=== PATIENT | male | born 1995 | race Caucasian/White ===

== ENCOUNTER 2020-02-26 14:41 | Emergency (ER) | payer OTHER ==
[2020-02-26] MEDS ORDERED: FOSPHENYTOIN PE 1,000 MG in NA CHLORIDE 0.9% 100 ML IV ONE (15:00)
[2020-02-26 15:05] LABS: Absolute Lymphocytes (CBC) 1.6 K/uL (0.7-4.9); Basophils % 0.6 % (0-1.3); Hematocrit 50.1 % (39.6-49.0); MPV 9.6 fL (7.6-11.3); RBC Red Blood Cell Count 5.61 M/uL (4.33-5.43)
[2020-02-26 15:21] LABS: BUN Blood Urea Nitrogen 16 mg/dL (7-18); Bicarbonate 26 mmol/L (21-32); Glucose Level 88 mg/dL (74-106); Sodium Level 142 mmol/L (136-145)
--- NOTE | 2020-02-26 15:38 | RAD REPORT ---
EXAM DESCRIPTION: CT - [id number] - 02/26/2020 3:13 pm CLINICAL HISTORY: seizure, headache COMPARISON: No comparisons TECHNIQUE: Axial 5 mm thick images of the head were obtained. Axial 2 mm thick images of the cervic al spine were obtained with sagittal and coronal reconstruction images generated and reviewed. All CT scans are performed using dose optimization technique as appropriate and may include automated exposure control or mA/KV adjustment according to patient size. FINDINGS: No intracranial hemorrhage, mass, edema or acute intracranial finding. No suspicion for ac nida infarction. No extra-axial fluid collections. Mastoid air cells and paranasal sinuses are clear. No globe or orbit abnormality seen. Cervical body height and alignment are normal. No disk space narrowing. No fracture or acute bony abn ormality. Central canal detail is inherently limited. No paraspinal mass or hematoma. IMPRESSION: Negative CT head examination for acute or significant finding. Negative CT cervical spine examination for acute or significant finding.
[2020-02-26 15:53] LABS: Barbiturates NEGATIVE (NEGATIVE); Benzodiazepines NEGATIVE (NEGATIVE); Cocaine NEGATIVE (NEGATIVE); METHAMPHETAM NEGATIVE (NEGATIVE); Methadone NEGATIVE (NEGATIVE); Opiates NEGATIVE (NEGATIVE); Phencyclidine NEGATIVE (NEGATIVE); THC Cannibis NEGATIVE (NEGATIVE)
--- NOTE | 2020-02-26 16:24 | ER ---
Nurse's Notes [facility] Name: Kalen Orantes Age: 24 yrs Sex: Male : 1995 Arrival Date: 02/26/2020 Time: 14:43 Bed 7 Private MD: Diagnosis: Epilepsy and recurrent seizures Presentation: 02/25 14:59 Chief complaint: EMS states: Pt had about six witnessed seizures; has a history of jl7 seizures since childhood. Report GOOD and leg pain. Coronavirus screen: Patient denies a cough. Patient denies shortness of breath or difficulty breathing. Patient denies measured and/or subjective temperature greater than 100.4F prior to today's visit. Patient denies travel on a cruise ship or to a country the [facility] currently lists as an affected area. Patient denies contact with known and/or suspected case of COVID-19. Proceed with normal triage. Ebola Screen: No symptoms or risks identified at this time. Initial Sepsis Screen: Does the patient meet any 2 criteria? No. Patient's initial sepsis screen is negative. Does the patient have a suspected source of infection? No. Patient's initial sepsis screen is negative. Risk Assessment: Do you want to hurt yourself or someone else? Patient reports no desire to harm self or others. Onset of symptoms was February 26, 2020. Care prior to arrival: None. 14:59 Method Of Arrival: EMS: [facility] jl7 14:59 Acuity: GODFREY 2 jl7 Historical: - Allergies: 15:02 No Known Allergies; jl7 - Home Meds: 15:02 Depakote Oral [Active]; jl7 - PMHx: 15:02 Seizures; jl7 - Immunization history:: Adult Immunizations up to date. - Social history:: Smoking status: unknown. Screenin:45 Abuse screen: Denies threats or abuse. Denies injuries from another. Nutritional jl7 screening: No deficits noted. Tuberculosis screening: No symptoms or risk factors identified. Fall Risk IV access (20 points). Total Nunez Fall Scale indicates No Risk (0-24 pts). Assessment: 14:45 General: Appears in no apparent distress. uncomfortable, Behavior is calm, cooperative, jl7 appropriate for age. Pain: Complains of pain in GOOD, right leg and left leg Pain does not radiate. Pain currently is 6 out of 10 on a pain scale. Is continuous. Neuro: Level of Consciousness is awake, alert, obeys commands, Oriented to person, place, time, situation. Cardiovascular: Patient's skin is warm and dry. Respiratory: Airway is patent Respiratory effort is even, unlabored, Respiratory pattern is regular, symmetrical. GI: No signs and/or symptoms were reported involving the gastrointestinal system. : No signs and/or symptoms were reported regarding the genitourinary system. Derm: Skin is pink, warm \T\ dry. Musculoskeletal: Range of motion: intact in all extremities, Swelling absent. 15:45 Reassessment: Patient appears in no apparent distress at this time. No changes from jl7 previously documented assessment. Patient and/or family updated on plan of care and expected duration. Pain level reassessed. Patient is alert, oriented x 3, equal unlabored respirations, skin warm/dry/pink. Vital Signs: 14:59 BP 124 / 77; Pulse 104; Resp 22; Temp 99; Pulse Ox 96% ; jl7 15:20 BP 122 / 69; Pulse 90; Resp 16; Pulse Ox 96% on R/A; ks7 15:52 BP 104 / 71; Pulse 82; Resp 16; Pulse Ox 96% ; jl7 16:34 BP 93 / 45; Pulse 72; Resp 17; Pulse Ox 98% on R/A; ks7 16:41 BP 122 / 69; Pulse 89; Resp 16; Pulse Ox 96% ; jl7 ED Course: 14:43 Patient arrived in ED. bd 14:43 Terence Morin MD is Attending Physician. kdr 14:45 Patient has correct armband on for positive identification. Placed in gown. Bed in low jl7 position. Call light in reach. Side rails up X2. Security at bedside. Seizure precautions initiated. cardiac monitor on. Pulse ox on. NIBP on. Warm blanket given. 14:46 Vianey Marvin RN is Primary Nurse. jl7 15:00 Triage completed. jl7 15:02 Arm band placed on right wrist. jl7 15:14 CT Head C Spine In Process Unspecified. EDMS 15:15 Initial lab(s) drawn, by me, sent to lab. Urine collected: clean catch specimen, clear. jl7 Inserted saline lock: 20 gauge in right antecubital area, using aseptic technique. Blood collected. 16:48 No provider procedures requiring assistance completed. IV discontinued, intact, jl7 bleeding controlled, No redness/swelling at site. Pressure dressing applied. Administered Medications: 15:20 Drug: CEREbyx 1 grams Route: IVPB; Site: right antecubital; ks7 16:20 Follow up: Response: No adverse reaction; IV Status: Completed infusion jl7 Outcome: 16:23 Discharge ordered by . melania 16:48 Discharged to Law Enforcement jl7 16:48 Condition: stable 16:48 Discharge instructions given to patient, police, Instructed on discharge instructions, follow up and referral plans. medication usage, Demonstrated understanding of instructions, follow-up care, medications, Prescriptions given X 1. 16:48 Patient left the ED. jl7 Signatures: Dispatcher [employer] EDMS Deena Lozano Kevin, MD MD kdr Leal, Jahala RN RN jl7 Gi Levine RN RN ks7
--- NOTE | 2020-02-26 16:24 | EDPHYS ---
Physician Documentation [facility] Name: Kalen Orantes Age: 24 yrs Sex: Male : 1995 Arrival Date: 02/26/2020 Time: 14:43 Bed 7 Private MD: ED Physician Terence Morin HPI: 02/25 14:45 This 24 yrs old Male presents to ER via Unassigned with complaints of kdr recurrent seizures. 14:45 The patient presents with a history of multiple seizures, an unknown number, that last kdr an unknown period of time, the episode(s) was witnessed, by a bystander. Character of seizure(s): Loss of consciousness: the patient experienced loss of consciousness, Motor activity: Incontinence: none. Seizure onset: this morning, today. Context: occurred Retirement, occurred while the patient was at rest. Seizure Hx: Original onset: longstanding, since childhood,\E\ Cause: unknown, Last seizure: The patient's last seizure yesterday. Associated injury: The patient did not suffer any apparent associated injury. EMS care: none. Current symptoms: headache, Generalized myalgias . The patient has experienced similar episodes in the past, multiple times. The patient has not recently seen a physician. Historical: - Allergies: 15:02 No Known Allergies; jl7 - Home Meds: 15:02 Depakote Oral [Active]; jl7 - PMHx: 15:02 Seizures; jl7 - Immunization history:: Adult Immunizations up to date. - Social history:: Smoking status: unknown. ROS: 14:45 Constitutional: Negative for fever, chills, and weight loss, Eyes: Negative for injury, kdr pain, redness, and discharge, ENT: Negative for injury, pain, and discharge, Neck: Negative for injury, pain, and swelling, Cardiovascular: Negative for chest pain, palpitations, and edema, Respiratory: Negative for shortness of breath, cough, wheezing, and pleuritic chest pain, Abdomen/GI: Negative for abdominal pain, nausea, vomiting, diarrhea, and constipation, Back: Negative for injury and pain, : Negative for injury, bleeding, discharge, and swelling, MS/Extremity: Negative for injury and deformity, Skin: Negative for injury, rash, and discoloration, Psych: Negative for depression, anxiety, suicide ideation, homicidal ideation, and hallucinations, Allergy/Immunology: Negative for hives, rash, and allergies, Endocrine: Negative for neck swelling, polydipsia, polyuria, polyphagia, and marked weight changes, Hematologic/Lymphatic: Negative for swollen nodes, abnormal bleeding, and unusual bruising. 14:45 Neuro: Positive for headache, seizure activity, Negative for altered mental status, dizziness, hearing loss, numbness, speech changes, syncope, near syncope, tingling, tinnitus, tremor, visual changes, weakness. Exam: 14:45 Constitutional: This is a well developed, well nourished patient who is awake, alert, kdr and in no acute distress. Head/Face: Normocephalic, atraumatic. Eyes: Pupils equal round and reactive to light, extra-ocular motions intact. Lids and lashes normal. Conjunctiva and sclera are non-icteric and not injected. Cornea within normal limits. Periorbital areas with no swelling, redness, or edema. Neck: Trachea midline, no thyromegaly or masses palpated, and no cervical lymphadenopathy. Supple, full range of motion without nuchal rigidity, or vertebral point tenderness. No Meningismus. Chest/axilla: Normal chest wall appearance and motion. Nontender with no deformity. No lesions are appreciated. Cardiovascular: Regular rate and rhythm with a normal S1 and S2. No gallops, murmurs, or rubs. Normal PMI, no JVD. No pulse deficits. Respiratory: Lungs have equal breath sounds bilaterally, clear to auscultation and percussion. No rales, rhonchi or wheezes noted. No increased work of breathing, no retractions or nasal flaring. Abdomen/GI: Soft, non-tender, with normal bowel sounds. No distension or tympany. No guarding or rebound. No evidence of tenderness throughout. Back: No spinal tenderness. No costovertebral tenderness. Full range of motion. Skin: Warm, dry with normal turgor. Normal color with no rashes, no lesions, and no evidence of cellulitis. MS/ Extremity: Pulses equal, no cyanosis. Neurovascular intact. Full, normal range of motion. Neuro: Awake and alert, GCS 15, oriented to person, place, time, and situation. Cranial nerves II-XII grossly intact. Motor strength 5/5 in all extremities. Sensory grossly intact. Cerebellar exam normal. Normal gait. Psych: Awake, alert, with orientation to person, place and time. Behavior, mood, and affect are within normal limits. Vital Signs: 14:59 BP 124 / 77; Pulse 104; Resp 22; Temp 99; Pulse Ox 96% ; jl7 15:20 BP 122 / 69; Pulse 90; Resp 16; Pulse Ox 96% on R/A; ks7 15:52 BP 104 / 71; Pulse 82; Resp 16; Pulse Ox 96% ; jl7 16:34 BP 93 / 45; Pulse 72; Resp 17; Pulse Ox 98% on R/A; ks7 16:41 BP 122 / 69; Pulse 89; Resp 16; Pulse Ox 96% ; jl7 MDM: 14:45 Data reviewed: vital signs, nurses notes, lab test result(s), radiologic studies. kdr Counseling: I had a detailed discussion with the patient and/or guardian regarding: the historical points, exam findings, and any diagnostic results supporting the discharge/admit diagnosis, lab results, radiology results, the need for outpatient follow up. 16:23 Patient medically screened. kdr 16:25 Special discussion: Based on the patient's history, exam and DX evaluation, there is no [facility] indication for emergent intervention or inpatient [place]. It is understood by the patient/guardian that if the SXs persist or worsen they need to return immediately for re-evaluation. I discussed with the patient/guardian in detail that at this point there is no indication for admission to the hospital. It is understood, however, that if the symptoms persist or worsen the patient needs to return immediately for re-evaluation. Based on the history and exam findings, there is no indication for further emergent testing or inpatient evaluation. I discussed with the patient/guardian the need to see the neurologist for further evaluation of the symptoms. 02/25 14:44 Order name: UDS; Complete Time: 16:22 [facility] 02/25 14:44 Order name: CBC with Diff; Complete Time: 15:33 [facility] 02/25 14:44 Order name: CT Head C Spine; Complete Time: 16:22 [facility] 02/25 14:44 Order name: Chem 7; Complete Time: 15:33 [facility] 02/25 16:19 Order name: Urine Dipstick--Ancillary (enter results) bd Administered Medications: 15:20 Drug: CEREbyx 1 grams Route: IVPB; Site: right antecubital; ks7 16:20 Follow up: Response: No adverse reaction; IV Status: Completed infusion jl7 Disposition: 02/26/20 16:23 Discharged to Home. Impression: Epilepsy and recurrent seizures. - Condition is Stable. - Discharge Instructions: Seizure, Adult, [id number]. - Prescriptions for Keppra 500 mg Oral Tablet - take 1 tablet by ORAL route every 12 hours; 20 tablet. - Medication Reconciliation Form, Thank You Letter form. - Follow up: Private Physician; When: 2 - 3 days; Reason: If symptoms return, Further diagnostic work-up, Recheck today's complaints, Continuance of care, Re-evaluation by your physician. - Problem is an acute exacerbation. - Symptoms are resolved. Signatures: Dispatcher [employer] EDMS Terence Morin MD MD kdr Leal, Jahala RN RN jl7 Gi Levine RN RN ks7 Corrections: (The following items were deleted from the chart) 16:48 16:23 02/26/2020 16:23 Discharged to Home. Impression: Epilepsy and recurrent seizures. jl7 Condition is Stable. Forms are Medication Reconciliation Form, Thank You Letter, Antibiotic Education, Prescription Opioid Use. Follow up: Private Physician; When: 2 - 3 days; Reason: If symptoms return, Further diagnostic work-up, Recheck today's complaints, Continuance of care, Re-evaluation by your physician. Problem is an acute exacerbation. Symptoms are resolved. kdr
[2020-02-26 16:56] VITALS: TEMP 99
[2020-02-26 17:01] VITALS: BP 122/69; O2SAT 96
[2020-02-26 20:54] LABS: Urine Blood NEGATIVE (NEG); Urine Glucose NEGATIVE (NEG); Urine Protein 1+ (NEG); Urine Specific Gravity 1.025 (1.005-1.030)
== END 2020-02-26 16:48 | disposition home or self-care (01) ==
LOC: ER 14:41
DX: G40.802 Other epilepsy, not intractable, without status epilepticus (principal)
CPT/HCPCS: 96365; 85025; 80048; 36415; 80307 ×8; 81003; 70450; 72125; 99285; Q2009

== ENCOUNTER 2020-02-26 20:47 | Emergency (ER) | payer OTHER ==
[2020-02-26] MEDS ORDERED: LEVETIRACETAM 500 MG/5 ML VIAL IV ONE (21:43)
[2020-02-26] MEDS ORDERED: NA CHLORIDE 0.9% 100 ML IV ONE (21:45)
[2020-02-26 22:16] LABS: BUN Blood Urea Nitrogen 17 mg/dL (7-18); Bicarbonate 25 mmol/L (21-32); Glucose Level 86 mg/dL (74-106); Potassium 3.9 mmol/L (3.5-5.1); Sodium Level 142 mmol/L (136-145)
[2020-02-26] MEDS ORDERED: KETOROLAC 30 MG/ML INJ ONE (22:39)
[2020-02-26] MEDS ORDERED: LORazepam 2 MG/ML VIAL ONE (22:39)
--- NOTE | 2020-02-26 23:34 | EDPHYS ---
Physician Documentation [facility] Name: Kalen Orantes Age: 24 yrs Sex: Male : 1995 Arrival Date: 02/26/2020 Time: 20:55 Bed 17 Private MD: ED Physician Altaf Jaimes HPI: 02/25 22:46 This 24 yrs old Male presents to ER via EMS with complaints of Probable rn Seizure. 22:46 The patient presents after having a possible seizure episode, the episode(s) was rn witnessed, [facility] staff. Character of seizure(s): Loss of consciousness: it is not known if the patient experienced loss of consciousness, Motor activity: generalized, Incontinence: none, Circulation: the patient did not experience evidence of pulse disturbance, Eye movements: are unknown. Seizure onset: today. Associated injury: The patient did not suffer any apparent associated injury. Current symptoms: Currently, the patient is not experiencing any symptoms. The patient has experienced similar episodes in the past. Reports seen earlier today for seizure, given fosphenytoin, went back to [facility] and had another witnessed seizure. Feels fine now. Has been having frequent seizures since age 8, after age 20 stopped seeing neuro or taking his medication. Keppra written for earlier not filled yet. Reports frequent seizures. States has seizures when gets hot and doesn't take his medicine. . Historical: - Allergies: 21:05 FISH PRODUCT DERIVATIVES; mt2 - PMHx: 21:05 Seizures; mt2 - Immunization history:: Adult Immunizations up to date. - Social history:: Smoking status: Patient reports the use of cigarette tobacco products, denies chronic smoking, but will smoke occasionally, Patient/guardian denies using alcohol. - Family history:: not pertinent. - Hospitalizations: : No recent hospitalization is reported. ROS: 22:46 Constitutional: Negative for fever, chills, and weight loss, Eyes: Negative for injury, rn pain, redness, and discharge, Cardiovascular: Negative for chest pain, palpitations, and edema, Respiratory: Negative for shortness of breath, cough, wheezing, and pleuritic chest pain, Abdomen/GI: Negative for abdominal pain, nausea, vomiting, diarrhea, and constipation, MS/Extremity: Negative for injury and deformity, Skin: Negative for injury, rash, and discoloration, Neuro: Negative for headache, weakness, numbness, tingling Exam: 22:36 ECG was reviewed by the Attending Physician. rn 22:46 Constitutional: This is a well developed, well nourished patient who is awake, alert, rn and in no acute distress. Head/Face: Normocephalic, atraumatic. Cardiovascular: Regular rate and rhythm. No pulse deficits. Respiratory: No increased work of breathing, no retractions or nasal flaring. Abdomen/GI: soft, non-tender Skin: Warm, dry MS/ Extremity: Pulses equal, no cyanosis. Neurovascular intact. Full, normal range of motion. Equal circumference. Neuro: Awake and alert, GCS 15, oriented to person, place, time, and situation. Cranial nerves II-XII grossly intact. Motor strength 5/5 in all extremities. Sensory grossly intact. Cerebellar exam normal. Vital Signs: 20:59 BP 128 / 61; Pulse 91; Resp 16; Temp 98.2; Pulse Ox 97% on R/A; Weight 125.65 kg; Pain mt2 0/10; 22:35 BP 124 / 50; Pulse 88; Resp 17 S; Pulse Ox 100% on R/A; jd3 23:30 BP 133 / 73; Pulse 87; Resp 17 S; Pulse Ox 100% on R/A; jd3 Barbara Coma Score: 20:59 Eye Response: spontaneous(4). Verbal Response: oriented(5). Motor Response: obeys mt2 commands(6). Total: 15. MDM: 21:14 Patient medically screened. rn 23:32 Differential diagnosis: seizure. Data reviewed: vital signs, nurses notes, old medical rn records, lab test result(s), EKG, and as a result, I will discharge patient. Counseling: I had a detailed discussion with the patient and/or guardian regarding: the historical points, exam findings, and any diagnostic results supporting the discharge/admit diagnosis, lab results, radiology results, the need for outpatient follow up, to return to the emergency department if symptoms worsen or persist or if there are any questions or concerns that arise at home. Response to treatment: the patient's condition has returned to base line, the patient is now symptom free, sleeping, ate a meal, no further seizure activity here, observed for 3 hours., and as a result, I will discharge patient. Special discussion: I discussed with the patient/guardian in detail that at this point there is no indication for admission to the hospital. It is understood, however, that if the symptoms persist or worsen the patient needs to return immediately for re-evaluation. 02/25 21:23 Order name: BMP; Complete Time: 22:46 rn 02/25 21:49 Order name: Glucose, Ancillary Testing; Complete Time: 22:46 EDNJ 02/25 21:23 Order name: IV Start; Complete Time: 21:51 rn 02/25 21:23 Order name: Glucose Level; Complete Time: 21:51 rn EC:36 Rate is 81 beats/min. Rhythm is regular. QRS [place] is Normal. OR interval is normal. QRS rn interval is normal. QT interval is normal. No Q waves. T waves are Normal. No ST changes noted. Clinical impression: Normal ECG. Interpreted by me. Reviewed by me. Administered Medications: 21:51 Drug: Keppra 1000 mg Route: IV; Rate: calculated rate; Site: right antecubital; jd3 22:50 Follow up: Response: No adverse reaction; IV Status: Completed infusion; IV Intake: jd3 100ml 22:33 Drug: Ativan 1 mg Route: IVP; Site: right antecubital; jd3 23:30 Follow up: Response: No adverse reaction jd3 22:34 Drug: TORadol - Ketorolac 15 mg Route: IVP; Site: right antecubital; jd3 23:30 Follow up: Response: No adverse reaction jd3 Disposition: 02/26/20 23:33 Discharged to Home. Impression: Epilepsy and recurrent seizures. - Condition is Stable. - Discharge Instructions: Seizure, Adult. - Medication Reconciliation Form, Thank You Letter, Antibiotic Education, Prescription Opioid Use form. - Follow up: Private Physician; When: As needed; Reason: Recheck today's complaints, Re-evaluation by your physician. - Problem is an ongoing problem. - Symptoms have improved. Signatures: Dispatcher [employer] Altaf Galvin MD MD rn Davies, Jonathon, RN RN jd3 Toscano, Marlene, RN RN mt2 Corrections: (The following items were deleted from the chart) 23:56 23:33 02/26/2020 23:33 Discharged to Home. Impression: Epilepsy and recurrent seizures. jd3 Condition is Stable. Forms are Medication Reconciliation Form, Thank You Letter, Antibiotic Education, Prescription Opioid Use. Follow up: Private Physician; When: As needed; Reason: Recheck today's complaints, Re-evaluation by your physician. Problem is an ongoing problem. Symptoms have improved. rn
--- NOTE | 2020-02-26 23:34 | ER ---
Nurse's Notes [facility] Name: Kalen Orantes Age: 24 yrs Sex: Male : 1995 Arrival Date: 02/26/2020 Time: 20:55 Bed 17 Private MD: Diagnosis: Epilepsy and recurrent seizures Presentation: 02/25 20:59 Chief complaint: EMS states: BIBA FROM [facility] FOR WITNESSED SZ. PT WAS mt2 SEEN EARLIER FOR SIMILAR EPISODE WAS DCS WITH SCRIPT. FACILITY UNABLE TO FILL TODAY. AT DINNER PT STARTED EATING WHEN LOC WAS OBSERVED WELL A 15 MINUTE LONG SZ. AIRWAY PATIENT ON SCENE PER EMS ON ARRIVAL PT WAS AWAKE AND ALERT VS WNL. NSR. GUARDS AT BEDSIDE. Coronavirus screen: Patient denies a cough. Patient denies shortness of breath or difficulty breathing. Patient denies measured and/or subjective temperature greater than 100.4F prior to today's visit. Patient denies travel on a cruise ship or to a country the [facility] currently lists as an affected area. Patient denies contact with known and/or suspected case of COVID-19. Patient instructed to continue to wear a mask when interacting with others. Patient moved to private room, placed in contact and droplet isolation with eye protection until further assessment. Ebola Screen: No symptoms or risks identified at this time. Initial Sepsis Screen: Does the patient meet any 2 criteria? No. Patient's initial sepsis screen is negative. Does the patient have a suspected source of infection? No. Patient's initial sepsis screen is negative. Risk Assessment: Do you want to hurt yourself or someone else?. Onset of symptoms was February 26, 2020. 20:59 Method Of Arrival: EMS: [facility] mt2 20:59 Acuity: GODFREY 3 mt2 Triage Assessment: 20:59 General: Appears in no apparent distress. comfortable, Behavior is cooperative. Pain: mt2 Denies pain. EENT: No deficits noted. Neuro: Reports headache in entire. Cardiovascular: No deficits noted. Respiratory: No deficits noted. GI: No deficits noted. : No deficits noted. Derm: No deficits noted. Musculoskeletal: No deficits noted. Historical: - Allergies: 21:05 FISH PRODUCT DERIVATIVES; mt2 - PMHx: 21:05 Seizures; mt2 - Immunization history:: Adult Immunizations up to date. - Social history:: Smoking status: Patient reports the use of cigarette tobacco products, denies chronic smoking, but will smoke occasionally, Patient/guardian denies using alcohol. - Family history:: not pertinent. - Hospitalizations: : No recent hospitalization is reported. Screenin:53 Abuse screen: Denies threats or abuse. Nutritional screening: No deficits noted. jd3 Tuberculosis screening: No symptoms or risk factors identified. Fall Risk Ambulatory Aid- None/Bed Rest/Nurse Assist (0 pts). Gait- Normal/Bed Rest/Wheelchair (0 pts) Mental Status- Oriented to own ability (0 pts). Total Nunez Fall Scale indicates No Risk (0-24 pts). Assessment: 21:51 General: Appears in no apparent distress. uncomfortable, Behavior is calm, cooperative, jd3 appropriate for age. Pain: Complains of pain in head Quality of pain is described as aching. Neuro: Level of Consciousness is awake, alert, obeys commands, Oriented to person, place, time, situation. Cardiovascular: Denies chest pain, Capillary refill < 3 seconds Patient's skin is warm and dry. Respiratory: Airway is patent Respiratory effort is even, unlabored, Respiratory pattern is regular, symmetrical. GI: No signs and/or symptoms were reported involving the gastrointestinal system. : No signs and/or symptoms were reported regarding the genitourinary system. EENT: No signs and/or symptoms were reported regarding the EENT system. Derm: Skin is intact, Skin is dry, Skin is normal, Skin temperature is warm. Musculoskeletal: Circulation, motion, and sensation intact. Range of motion: intact in all extremities. 22:34 Reassessment: Patient appears in no apparent distress at this time. Patient and/or jd3 family updated on plan of care and expected duration. Pain level reassessed. Patient is alert, oriented x 3, equal unlabored respirations, skin warm/dry/pink. pt reporting feeling better, but continues to have a headache, provider notified. 23:30 Reassessment: Patient appears in no apparent distress at this time. Patient and/or jd3 family updated on plan of care and expected duration. Pain level reassessed. Patient is alert, oriented x 3, equal unlabored respirations, skin warm/dry/pink. Patient states feeling better. Vital Signs: 20:59 BP 128 / 61; Pulse 91; Resp 16; Temp 98.2; Pulse Ox 97% on R/A; Weight 125.65 kg; Pain mt2 0/10; 22:35 BP 124 / 50; Pulse 88; Resp 17 S; Pulse Ox 100% on R/A; jd3 23:30 BP 133 / 73; Pulse 87; Resp 17 S; Pulse Ox 100% on R/A; jd3 Barbara Coma Score: 20:59 Eye Response: spontaneous(4). Verbal Response: oriented(5). Motor Response: obeys mt2 commands(6). Total: 15. ED Course: 20:55 Patient arrived in ED. sg 20:59 Arm band placed on right wrist. mt2 21:04 Triage completed. mt2 21:05 EKG completed in triage. Results shown to MD. mt2 21:14 Melvin Pena RN is Primary Nurse. jd3 21:14 Altaf Jaimes MD is Attending Physician. rn 21:51 Inserted saline lock: 20 gauge in right antecubital area, using aseptic technique. dh4 Blood collected. 21:53 Patient has correct armband on for positive identification. Bed in low position. Call jd3 light in reach. Side rails up X2. Adult w/ patient. Seizure precautions initiated. Pulse ox on. NIBP on. 22:34 Diet tray given. jd3 23:30 No provider procedures requiring assistance completed. jd3 23:47 IV discontinued, intact, bleeding controlled, No redness/swelling at site. Pressure jd3 dressing applied. Administered Medications: 21:51 Drug: Keppra 1000 mg Route: IV; Rate: calculated rate; Site: right antecubital; jd3 22:50 Follow up: Response: No adverse reaction; IV Status: Completed infusion; IV Intake: jd3 100ml 22:33 Drug: Ativan 1 mg Route: IVP; Site: right antecubital; jd3 23:30 Follow up: Response: No adverse reaction jd3 22:34 Drug: TORadol - Ketorolac 15 mg Route: IVP; Site: right antecubital; jd3 23:30 Follow up: Response: No adverse reaction jd3 Intake: 22:50 IV: 100ml; Total: 100ml. jd3 Outcome: 23:33 Discharge ordered by . rn 23:47 Condition: stable jd3 23:47 Discharge instructions given to patient, Instructed on discharge instructions, follow up and referral plans. Demonstrated understanding of instructions, follow-up care. 23:55 Discharged to shelter with shelter guards jd3 23:56 Patient left the ED. jd3 Signatures: Shravan Ryan RN RN Altaf Nieto MD MD rn Davies, Jonathon, RN RN [facility] Evangelina Pickering RN RN mt2
[2020-02-27 00:22] VITALS: TEMP 98.2
[2020-02-27 00:23] VITALS: O2SAT 100
[2020-02-27 00:24] VITALS: BP 133/73
== END 2020-02-26 23:56 | disposition home or self-care (01) ==
LOC: ER 20:47
DX: G40.802 Other epilepsy, not intractable, without status epilepticus (principal); F17.210 Nicotine dependence, cigarettes, uncomplicated; Z91.013 Allergy to seafood
CPT/HCPCS: 36415; 80048; 82947; 93005; 96365; 96375; 99284; J1953

== ENCOUNTER 2020-02-27 16:37 | Emergency (ER) | payer OTHER ==
--- NOTE | 2020-02-27 17:12 | EDPHYS ---
Physician Documentation [facility] Name: Kalen Orantes Age: 24 yrs Sex: Male : 1995 Arrival Date: 02/27/2020 Time: 16:45 Bed 6 Private MD: ED Physician Terence Morin HPI: 02/26 17:15 This 24 yrs old Male presents to ER via EMS with complaints of Seizure. snw 17:13 The patient presents with a history of multiple seizures, an unknown number, the snw episode(s) was witnessed, [facility] staff. Seizure onset: yesterday. Associated injury: The patient did not suffer any apparent associated injury. EMS care: IV fluids, supplemental oxygen. Current symptoms: Currently, the patient is not experiencing any symptoms. The patient has experienced similar episodes in the past, several times, with the last episode occurring yesterday. The patient has been recently seen at the [facility] Emergency Department, this is the third visit since 1500 yesterday. 17:23 Seizure Hx: Seizure medications: pt states he has been having seizures since he was 8, snw he thinks he was medicated at one time for them during his CPS stay to age 20yr. Pt states post CPS care he has not gone to Physician. No medications for epilepsy except he takes his 's Ativan prn.. Historical: - Allergies: 16:49 FISH PRODUCT DERIVATIVES; bp - Home Meds: 16:49 Keppra 1,000 mg Oral tab 1 tab every 12 hours [Active]; bp - PMHx: 16:49 Seizures; bp - Immunization history:: Adult Immunizations up to date. - Social history:: Smoking status: Patient denies any tobacco usage or history of. ROS: 17:15 Constitutional: Negative for fever, chills, and weight loss, Eyes: Negative for injury, snw pain, redness, and discharge, ENT: Negative for injury, pain, and discharge, Neck: Negative for injury, pain, and swelling, Cardiovascular: Negative for chest pain, palpitations, and edema, Respiratory: Negative for shortness of breath, cough, wheezing, and pleuritic chest pain, Abdomen/GI: Negative for abdominal pain, nausea, vomiting, diarrhea, and constipation, Back: Negative for injury and pain, : Negative for injury, bleeding, discharge, and swelling, MS/Extremity: Negative for injury and deformity, Skin: Negative for injury, rash, and discoloration. 17:15 Neuro: Positive for seizure activity. Exam: 17:25 Constitutional: This is a well developed, well nourished patient who is awake, alert, snw and in no acute distress. Head/Face: Normocephalic, atraumatic. Eyes: Pupils equal round and reactive to light, extra-ocular motions intact. Lids and lashes normal. Conjunctiva and sclera are non-icteric and not injected. Cornea within normal limits. Periorbital areas with no swelling, redness, or edema. ENT: Nares patent. No nasal discharge, no septal abnormalities noted. Tympanic membranes are normal and external auditory canals are clear. Oropharynx with no redness, swelling, or masses, exudates, or evidence of obstruction, uvula midline. Mucous membranes moist. Neck: Trachea midline, no thyromegaly or masses palpated, and no cervical lymphadenopathy. Supple, full range of motion without nuchal rigidity, or vertebral point tenderness. No Meningismus. Chest/axilla: Normal chest wall appearance and motion. Nontender with no deformity. No lesions are appreciated. Cardiovascular: Regular rate and rhythm with a normal S1 and S2. No gallops, murmurs, or rubs. Normal PMI, no JVD. No pulse deficits. Respiratory: Lungs have equal breath sounds bilaterally, clear to auscultation and percussion. No rales, rhonchi or wheezes noted. No increased work of breathing, no retractions or nasal flaring. Abdomen/GI: Soft, non-tender, with normal bowel sounds. No distension or tympany. No guarding or rebound. No evidence of tenderness throughout. Back: No spinal tenderness. No costovertebral tenderness. Full range of motion. Skin: Warm, dry with normal turgor. Normal color with no rashes, no lesions, and no evidence of cellulitis. MS/ Extremity: Pulses equal, no cyanosis. Neurovascular intact. Full, normal range of motion. Neuro: Awake and alert, GCS 15, oriented to person, place, time, and situation. Cranial nerves II-XII grossly intact. Motor strength 5/5 in all extremities. Sensory grossly intact. Cerebellar exam normal. Normal gait. Psych: Awake, alert, with orientation to person, place and time. Behavior, mood, and affect are within normal limits. Vital Signs: 16:47 BP 137 / 85; Pulse 100; Resp 16; Temp 98.1; Pulse Ox 95% ; bp 17:15 BP 125 / 67; Pulse 87; Resp 18; Pulse Ox 97% ; Pain 9/10; ks7 18:24 Pulse Ox 96% on R/A; ks7 18:24 Pulse Ox 96% ; Pain 6/10; ks7 18:49 BP 127 / 70; Pulse 65; Resp 18; Temp 98(TE); Pulse Ox 95% on R/A; Pain 0/10; ks7 20:27 BP 121 / 70; Pulse 60; Resp 19; Temp 98.1; Pulse Ox 99% ; rr5 21:30 BP 146 / 62; Pulse 85; Resp 16; Pulse Ox 98% on R/A; Pain 6/10; rr5 Barbara Coma Score: 16:49 Eye Response: spontaneous(4). Verbal Response: oriented(5). Motor Response: obeys bp commands(6). Total: 15. MDM: 16:51 Patient medically screened. snw 17:00 Physician consultation: Dr. Darnell was called at 17:00, was contacted at 17:04, snw regarding regarding transfer, to [facility]. patient's condition, would like medications started, Keppra 1500mg now and Dr. Darnell kindly accepts pt in transfer. 17:12 Data reviewed: vital signs, nurses notes. Data interpreted: Pulse oximetry: on room air snw is 95 %. Interpretation: normal. Counseling: I had a detailed discussion with the patient and/or guardian regarding: the historical points, exam findings, and any diagnostic results supporting the discharge/admit diagnosis, the presence of at least one elevated blood pressure reading (>120/80) during this emergency department visit, the need to transfer to another facility, for higher level of care, managed care. 19:10 ED course: pt awaiting transfer, + tonic clonic seizure activity. Ativan 1mg IV given.. snw Administered Medications: Discontinued: Keppra 1500 mg IV at calculated rate once 17:41 Drug: Keppra 1500 mg Route: IV; Rate: calculated rate; Site: left antecubital; ks7 18:24 Follow up: Pulse Ox 96% RA ks7 19:05 Follow up: Response: No adverse reaction; IV Status: Completed infusion; IV Intake: rr5 100ml 17:49 Drug: TORadol 30 mg Route: IM; Site: left deltoid; ks7 18:24 Follow up: Pulse Ox 96% ; Pain 6/10 Adult ks7 18:48 Drug: LORazepam 1 mg Route: IVP; Site: left antecubital; ks7 19:30 Follow up: Response: No adverse reaction rr5 20:31 Drug: [place] 5 mg-325 mg 1 tabs {Note: rass 0.} Route: PO; rr5 21:30 Follow up: Response: No adverse reaction; Pain is decreased; RASS: Alert and Calm (0) rr5 Disposition: 02/27 11:36 Co-signature as Attending Physician, Terence Morin MD I agree with the assessment and kdr plan of care. Disposition: 02/27/20 17:11 Transfer ordered to [facility]. Diagnosis is Localization-related (focal) (partial) symptomatic epilepsy and epileptic syndromes with complex partial seizures, not intractable. - Reason for transfer: Higher level of care. - Accepting physician is Dr. Darnell. - Condition is Stable. - Problem is an ongoing problem. - Symptoms are unchanged. Signatures: Terence Morin MD MD kdr Carmen Garrison, CHRISTIAN SCIENCE PRACTITIONER-C CHRISTIAN SCIENCE PRACTITIONER-Marcel Yanes, RN RN [place], RN RN rr5 Gi Levine RN RN ks7 Corrections: (The following items were deleted from the chart) 02/26 22:06 17:11 02/27/2020 17:11 Transfer ordered to [facility]. Diagnosis is rr5 Localization-related (focal) (partial) symptomatic epilepsy and epileptic syndromes with complex partial seizures, not intractable. Reason for transfer: Higher level of care. Accepting physician is Dr. Darnell. Condition is Stable. Problem is an ongoing problem. Symptoms are unchanged. snw
--- NOTE | 2020-02-27 17:12 | ER ---
Nurse's Notes [facility] Name: Kalen Orantes Age: 24 yrs Sex: Male : 1995 Arrival Date: 02/27/2020 Time: 16:45 Bed 6 Private MD: Diagnosis: Localization-related (focal) (partial) symptomatic epilepsy and epileptic syndromes with complex partial seizures, not intractable Presentation: 02/26 16:47 Chief complaint: EMS states: SEIZURE AT [facility]. Coronavirus screen: At this time, the bp client does not indicate any symptoms associated with coronavirus-19. Ebola Screen: No symptoms or risks identified at this time. Initial Sepsis Screen: Does the patient meet any 2 criteria? HR > 90 bpm. No. Patient's initial sepsis screen is negative. Does the patient have a suspected source of infection? No. Patient's initial sepsis screen is negative. Risk Assessment: Do you want to hurt yourself or someone else? Patient reports no desire to harm self or others. Onset of symptoms is unknown. Care prior to arrival: IV initiated. 20 GA, in the right antecubital area. 16:47 Method Of Arrival: EMS: [facility] bp 16:47 Acuity: GODFREY 4 bp Triage Assessment: 16:49 General: Appears in no apparent distress. comfortable, Behavior is calm, cooperative, bp appropriate for age. Pain: Denies pain. EENT: No deficits noted. Neuro: Level of Consciousness is awake, alert, obeys commands, Oriented to person, place, time, situation, Appropriate for age Seizure activity reported prior to arrival. Cardiovascular: No deficits noted. Respiratory: No deficits noted. GI: No signs and/or symptoms were reported involving the gastrointestinal system. : No signs and/or symptoms were reported regarding the genitourinary system. Derm: No deficits noted. Musculoskeletal: No deficits noted. Historical: - Allergies: 16:49 FISH PRODUCT DERIVATIVES; bp - Home Meds: 16:49 Keppra 1,000 mg Oral tab 1 tab every 12 hours [Active]; bp - PMHx: 16:49 Seizures; bp - Immunization history:: Adult Immunizations up to date. - Social history:: Smoking status: Patient denies any tobacco usage or history of. Screenin:51 Abuse screen: Denies threats or abuse. Denies injuries from another. Nutritional bp screening: No deficits noted. Tuberculosis screening: No symptoms or risk factors identified. Fall Risk None identified. Assessment: 16:51 General: SEE TRIAGE NOTE. bp 17:14 Reassessment: faxed Keppra order to pharmacy. Pain: Complains of pain in GOOD Pain ks7 currently is 9 out of 10 on a pain scale. Quality of pain is described as aching, Pain began 1 hour ago. Is continuous. Neuro: No deficits noted. 17:32 Reassessment: REPORT TO ELENI LOYD AT [facility]. TRANSPORT PENDING. bp 17:43 Reassessment: medic IV non-functional. removed and started new line in L AC. Keppra ks7 infusing. 18:23 Reassessment: Patient is alert, oriented x 3, equal unlabored respirations, skin ks7 warm/dry/pink. no seizure activity. gave pt sandwich and water. 18:47 Reassessment: witnessed seizure lasting 2 minutes. pt safety maintained. seizure pads ks7 bed, no injury to pt. pt post ictal, oriented to self. able to speak his name. asked "where am I" Notifed ACCOUNTS PAYABLE SPECIALIST, VORB: 1 mg ativan ivp. 19:10 General: Appears in no apparent distress. comfortable, Behavior is calm, cooperative, rr5 drowsy, on handcuff with 2 gurards at bedside. for transfer to [facility], awaiting for EMS transport. 19:10 Neuro: Level of Consciousness is awake, alert, obeys commands, Oriented to person, rr5 place, time, situation. Cardiovascular: Capillary refill < 3 seconds Patient's skin is warm and dry. Respiratory: Airway is patent Respiratory effort is even, unlabored, Respiratory pattern is regular, symmetrical. GI: No signs and/or symptoms were reported involving the gastrointestinal system. : No signs and/or symptoms were reported regarding the genitourinary system. EENT: No signs and/or symptoms were reported regarding the EENT system. Derm: Skin is intact, is healthy with good turgor, Skin temperature is warm. Musculoskeletal: Capillary refill < 3 seconds. 19:56 Reassessment: [facility] staff kindell [facility] rr5 come around 2100-2130H. 20:00 Neuro: Reports headache ED provider aware with order made and carried out. rr5 21:00 Reassessment: Patient appears in no apparent distress at this time. Patient is alert, rr5 oriented x 3, equal unlabored respirations, skin warm/dry/pink. snacks given no active seizure noted. 21:59 Reassessment: Patient appears in no apparent distress at this time. Patient is alert, rr5 oriented x 3, equal unlabored respirations, skin warm/dry/pink. [facility]. Vital Signs: 16:47 BP 137 / 85; Pulse 100; Resp 16; Temp 98.1; Pulse Ox 95% ; bp 17:15 BP 125 / 67; Pulse 87; Resp 18; Pulse Ox 97% ; Pain 9/10; ks7 18:24 Pulse Ox 96% on R/A; ks7 18:24 Pulse Ox 96% ; Pain 6/10; ks7 18:49 BP 127 / 70; Pulse 65; Resp 18; Temp 98(TE); Pulse Ox 95% on R/A; Pain 0/10; ks7 20:27 BP 121 / 70; Pulse 60; Resp 19; Temp 98.1; Pulse Ox 99% ; rr5 21:30 BP 146 / 62; Pulse 85; Resp 16; Pulse Ox 98% on R/A; Pain 6/10; rr5 Barbara Coma Score: 16:49 Eye Response: spontaneous(4). Verbal Response: oriented(5). Motor Response: obeys bp commands(6). Total: 15. ED Course: 16:45 Patient arrived in ED. bp 16:46 Carmen Garrison FNP-Zainab is [facility]. snw 16:46 Terence Morin MD is Attending Physician. snw 16:48 Triage completed. bp 16:49 Arm band placed on. bp 16:51 Patient has correct armband on for positive identification. Bed in low position. Call bp light in reach. Side rails up X2. Security at bedside. Seizure precautions initiated. 16:51 Maintain EMS IV. Dressing intact. Good blood return noted. Site clean \\T\\ dry. Gauge \\T\\ bp site: 20 GAUGE R AC. 17:10 Gi Levine RN is Primary Nurse. ks7 17:44 IV discontinued, intact, bleeding controlled, No redness/swelling at site. Pressure ks7 dressing applied, Medic IV didn't work. 17:44 Inserted saline lock: 20 gauge in left antecubital area, using aseptic technique. ks7 22:04 No provider procedures requiring assistance completed. Patient transferred, IV remains rr5 in place. intact, No redness/swelling at site. Administered Medications: Discontinued: Keppra 1500 mg IV at calculated rate once 17:41 Drug: Keppra 1500 mg Route: IV; Rate: calculated rate; Site: left antecubital; ks7 18:24 Follow up: Pulse Ox 96% RA ks7 19:05 Follow up: Response: No adverse reaction; IV Status: Completed infusion; IV Intake: rr5 100ml 17:49 Drug: TORadol 30 mg Route: IM; Site: left deltoid; ks7 18:24 Follow up: Pulse Ox 96% ; Pain 6/10 Adult ks7 18:48 Drug: LORazepam 1 mg Route: IVP; Site: left antecubital; ks7 19:30 Follow up: Response: No adverse reaction rr5 20:31 Drug: [place] 5 mg-325 mg 1 tabs {Note: rass 0.} Route: PO; rr5 21:30 Follow up: Response: No adverse reaction; Pain is decreased; RASS: Alert and Calm (0) rr5 Intake: 19:05 IV: 100ml; Total: 100ml. rr5 Outcome: 17:11 ER care complete, transfer ordered by MD. miramontes 22:04 Transferred by ground EMS to [facility], Transfer form rr5 completed. 22:04 Condition: stable 22:04 Instructed on the need for transfer. 22:06 Patient left the ED. rr5 Signatures: Carmen Garrison, DWIGHT-C CORN PICKER-Marcel Yanes RN RN [place], RN RN rr5 Gi Levine, EVERT RN ks7 Corrections: (The following items were deleted from the chart) 18:49 18:47 Reassessment: witnessed seizure lasting 2 minutes. pt safety maintained. seizure ks7 pads bed, no injury to pt. pt post ictal, oriented to self. able to speak his name. asked "where am I" ks7
[2020-02-27] MEDS ORDERED: KETOROLAC 30 MG/ML INJ ONE (17:55)
[2020-02-27] MEDS ORDERED: levETIRAcetam 1,500 MG in NA CHLORIDE 0.9% 100 ML IV ONE (18:00)
[2020-02-27] MEDS ORDERED: LORazepam 2 MG/ML VIAL ONE (18:54)
[2020-02-27] MEDS ORDERED: HYDROCODONE/APAP 5/325 MG TAB ONE (20:38)
[2020-02-27 22:22] VITALS: TEMP 98.1
[2020-02-27 22:23] VITALS: BP 146/62; O2SAT 98
== END 2020-02-27 22:06 | disposition short-term general hospital (02) ==
LOC: ER 16:37
DX: G40.209 Localization-related (focal) (partial) symptomatic epilepsy and epileptic syndromes with complex partial seizures, not intractable, without status epilepticus (principal); Z91.013 Allergy to seafood
CPT/HCPCS: 96365; 96372; 96375; 99285; J1953

== ENCOUNTER 2020-03-06 20:16 | Emergency (ER) | payer OTHER ==
[2020-03-06 20:51] LABS: BUN Blood Urea Nitrogen 15 mg/dL (7-18); Bicarbonate 25 mmol/L (21-32); Glucose Level 94 mg/dL (74-106); Potassium 3.5 mmol/L (3.5-5.1); Sodium Level 142 mmol/L (136-145)
--- NOTE | 2020-03-06 21:17 | ER ---
Nurse's Notes [facility] Name: Kalen Orantes Age: 24 yrs Sex: Male : 1995 Arrival Date: 03/06/2020 Time: 20:19 Bed 6 Private MD: Diagnosis: Epilepsy and recurrent seizures Presentation: 03/06 20:22 Chief complaint: EMS states: Reports pt had a witnessed seizure that lasted about 10 ea minutes. Pt has a history of known seizures. Was seen at [place] and was placed on Depakote. Coronavirus screen: At this time, the client does not indicate any symptoms associated with coronavirus-19. The client reports previous COVID testing was negative. Ebola Screen: No symptoms or risks identified at this time. Initial Sepsis Screen: Does the patient meet any 2 criteria? No. Patient's initial sepsis screen is negative. Does the patient have a suspected source of infection? No. Patient's initial sepsis screen is negative. Risk Assessment: Do you want to hurt yourself or someone else? Patient reports no desire to harm self or others. Onset of symptoms was March 06, 2020. 20:22 Method Of Arrival: EMS: [facility] ea 20:22 Acuity: [facility]FRE[facility] 3 ea Triage Assessment: 20:24 General: Appears in no apparent distress. Behavior is appropriate for age. Pain: Denies ea pain. Historical: - Allergies: 20:26 FISH PRODUCT DERIVATIVES; ea - PMHx: 20:26 Seizures; ea - Immunization history:: Adult Immunizations up to date. - Social history:: Smoking status: unknown. Screenin:24 Abuse screen: Denies threats or abuse. Nutritional screening: No deficits noted. ea Tuberculosis screening: No symptoms or risk factors identified. Fall Risk None identified. Assessment: 20:30 General: Appears in no apparent distress. Behavior is appropriate for age. Pain: Denies ea pain. Neuro: Level of Consciousness is awake, alert, obeys commands, Oriented to person, place, time, situation. Cardiovascular: Patient's skin is warm and dry. Respiratory: Airway is patent Respiratory effort is even, unlabored, Respiratory pattern is regular, symmetrical. Derm: Skin is pink, warm \T\ dry. 21:05 Reassessment: Patient and/or family updated on plan of care and expected duration. Pain ea level reassessed. Patient is alert, oriented x 3, equal unlabored respirations, skin warm/dry/pink. Patient denies pain at this time. 21:20 Reassessment: Patient and/or family updated on plan of care and expected duration. Pain ea level reassessed. Patient is alert, oriented x 3, equal unlabored respirations, skin warm/dry/pink. Discharge instruction given to patient, pt left ED ambulatory accompanied by [facility] guards. Vital Signs: 20:22 BP 118 / 70; Pulse 79; Resp 19; Temp 98; Pulse Ox 96% ; Weight 124.28 kg; Height 6 ft. ea 1 in. (185.42 cm); 21:06 BP 120 / 60; Pulse 80; Resp 18; Temp 98; Pulse Ox 97% on R/A; ea 20:22 Body Mass Index 36.15 (124.28 kg, 185.42 cm) ea ED Course: 20:19 Patient arrived in ED. rv 20:21 Denise Caruso, RN is Primary Nurse. ea 20:23 Hamida Ball FNP-C is PHCP. kb 20:23 Jarad Adams MD is Attending Physician. kb 20:24 Triage completed. ea 20:24 Arm band placed on left wrist. Patient placed in an exam room, on a stretcher, on pulse ea oximetry. 20:24 Patient has correct armband on for positive identification. Bed in low position. Call ea light in reach. Side rails up X2. [employer] guards at bedside. 20:31 Inserted saline lock: 18 gauge in right antecubital area, using aseptic technique. rv Blood collected. 21:10 No provider procedures requiring assistance completed. IV discontinued, intact, ea bleeding controlled, No redness/swelling at site. Pressure dressing applied. Administered Medications: No medications were administered Outcome: 21:16 Discharge ordered by . kb 21:20 Discharged to Pt left ED accompanied by [facility] guards ea 21:20 Condition: stable 21:20 Discharge instructions given to patient, Instructed on discharge instructions, follow up and referral plans. Demonstrated understanding of instructions, follow-up care. 21:21 Patient left the ED. ea Signatures: Hamida Ball FNP-C FNP-Denise Soto RN RN ea Vicente, Ronaldo, RN RN rv Corrections: (The following items were deleted from the chart) 20:44 20:31 Inserted saline lock: 20 gauge in right antecubital area, using aseptic rv technique. Blood collected. ea
--- NOTE | 2020-03-06 21:18 | EDPHYS ---
Physician Documentation [facility] Name: Kalen Orantes Age: 24 yrs Sex: Male : 1995 Arrival Date: 03/06/2020 Time: 20:19 Bed 6 Private MD: ED Physician Jarad Adams HPI: 03/06 20:27 This 24 yrs old Male presents to ER via EMS with complaints of seizure. kb 20:27 The patient presents after having a single isolated seizure, that lasted 10 minute(s). kb Character of seizure(s): Loss of consciousness: the patient experienced loss of consciousness, Motor activity: generalized, shaking all over, Incontinence: none. Seizure onset: just prior to arrival. Context: the seizure(s) was witnessed, inmates, guards. Seizure Hx: Original onset: longstanding. Associated injury: The patient did not suffer any apparent associated injury. Current symptoms: Currently, the patient is not experiencing any symptoms, the patient feels back to baseline, no decreased level of consciousness, no confusion, no dysphasia, no headache, no paralysis, no visual changes. The patient has experienced similar episodes in the past. The patient has been recently seen by a physician: in [facility], with similar presenting complaints, and apparently given a diagnosis of seizures. Pt reports history of seizure and this one felt the same as his previous ones. States he has been taking Depakote 500mg BID and hasn't missed any doses, but has been stressed and lacking sleep. Pt awake, alert and oriented. Pt has no complaints. . Historical: - Allergies: 20:26 FISH PRODUCT DERIVATIVES; ea - PMHx: 20:26 Seizures; ea - Immunization history:: Adult Immunizations up to date. - Social history:: Smoking status: unknown. ROS: 20:30 Constitutional: Negative for fever, chills, and weight loss, Cardiovascular: Negative kb for chest pain, palpitations, and edema, Respiratory: Negative for shortness of breath, cough, wheezing, and pleuritic chest pain, Abdomen/GI: Negative for abdominal pain, nausea, vomiting, diarrhea, and constipation, Back: Negative for injury and pain, MS/Extremity: Negative for injury and deformity, Skin: Negative for injury, rash, and discoloration. 20:30 Neuro: Positive for seizure activity, Negative for altered mental status, dizziness, gait disturbance, headache, hearing loss, loss of consciousness, numbness, speech changes, syncope, near syncope, tingling, tinnitus, tremor, visual changes, weakness. Exam: 20:30 Constitutional: This is a well developed, well nourished patient who is awake, alert, kb and in no acute distress. Head/Face: Normocephalic, atraumatic. Chest/axilla: Normal chest wall appearance and motion. Nontender with no deformity. No lesions are appreciated. Cardiovascular: Regular rate and rhythm with a normal S1 and S2. No gallops, murmurs, or rubs. Normal PMI, no JVD. No pulse deficits. Respiratory: Lungs have equal breath sounds bilaterally, clear to auscultation and percussion. No rales, rhonchi or wheezes noted. No increased work of breathing, no retractions or nasal flaring. Abdomen/GI: Soft, non-tender, with normal bowel sounds. No distension or tympany. No guarding or rebound. No evidence of tenderness throughout. Back: No spinal tenderness. No costovertebral tenderness. Full range of motion. Skin: Warm, dry with normal turgor. Normal color with no rashes, no lesions, and no evidence of cellulitis. MS/ Extremity: Pulses equal, no cyanosis. Neurovascular intact. Full, normal range of motion. Neuro: Awake and alert, GCS 15, oriented to person, place, time, and situation. Cranial nerves II-XII grossly intact. Motor strength 5/5 in all extremities. Sensory grossly intact. Cerebellar exam normal. Normal gait. Vital Signs: 20:22 BP 118 / 70; Pulse 79; Resp 19; Temp 98; Pulse Ox 96% ; Weight 124.28 kg; Height 6 ft. ea 1 in. (185.42 cm); 21:06 BP 120 / 60; Pulse 80; Resp 18; Temp 98; Pulse Ox 97% on R/A; ea 20:22 Body Mass Index 36.15 (124.28 kg, 185.42 cm) ea MDM: 20:23 Patient medically screened. kb 20:30 Data reviewed: vital signs, nurses notes. Data interpreted: Pulse oximetry: on room air kb is 96 %. Interpretation: normal. 20:53 Counseling: I had a detailed discussion with the patient and/or guardian regarding: the kb historical points, exam findings, and any diagnostic results supporting the discharge/admit diagnosis, lab results, the need for outpatient follow up, a family practitioner, to return to the emergency department if symptoms worsen or persist or if there are any questions or concerns that arise at home. 03/06 20:24 Order name: Basic Metabolic Panel kb 03/06 20:24 Order name: Depakote kb 03/06 20:24 Order name: IV Start; Complete Time: 20:30 kb 03/06 20:51 Order name: Basic Metabolic Panel; Complete Time: 20:52 EDMS 03/06 20:51 Order name: Valproic Acid (Depakene) Level; Complete Time: 20:52 EDMS Administered Medications: No medications were administered Disposition: 03/07 00:02 Co-signature as Attending Physician, Jarad Adams MD. [email or web address] Disposition: 03/06/20 21:16 Discharged to Home. Impression: Epilepsy and recurrent seizures. - Condition is Stable. - Discharge Instructions: Seizure, Adult, [id number]. - Medication Reconciliation Form, Thank You Letter, Antibiotic Education, Prescription Opioid Use form. - Follow up: Emergency Department; When: As needed; Reason: Worsening of condition. Follow up: Private Physician; When: 2 - 3 days; Reason: Recheck today's complaints, Continuance of care, Re-evaluation by your physician. Signatures: Dispatcher [employer] EDHamida Hughes, NAILHEAD OPERATOR-C NAILHEAD OPERATOR-Denise Soto RN RN ea Holmes, Maurice, MD MD [email or web address] Corrections: (The following items were deleted from the chart) 03/06 21:21 21:16 03/06/2020 21:16 Discharged to Home. Impression: Epilepsy and recurrent seizures. ea Condition is Stable. Forms are Medication Reconciliation Form, Thank You Letter, Antibiotic Education, Prescription Opioid Use. Follow up: Emergency Department; When: As needed; Reason: Worsening of condition. Follow up: Private Physician; When: 2 - 3 days; Reason: Recheck today's complaints, Continuance of care, Re-evaluation by your physician. kb
[2020-03-06 21:31] VITALS: TEMP 98
[2020-03-06 21:33] VITALS: BP 120/60; O2SAT 97
== END 2020-03-06 21:21 | disposition home or self-care (01) ==
LOC: ER 20:16
DX: G40.802 Other epilepsy, not intractable, without status epilepticus (principal); Z91.013 Allergy to seafood
CPT/HCPCS: 36415; 80048; 80164; 99284